=== PATIENT | male | born 1995 | race Two or more races ===

== ENCOUNTER 2017-12-02 17:59 | Emergency (ER) | payer BC, OTHER ==
[2017-12-02 18:29] VITALS: BP 147/89; PULSE 79; RESP 18; TEMP 98.5
--- NOTE | 2017-12-02 18:55 | ED ---
Skin/Abscess/FB HPI - General Chief complaint: Skin/Abscess/Foreign Body Stated complaint: rt leg rash Time Seen by Provider: 12/02/17 18:31 Source: patient Mode of arrival: ambulatory Limitations: no limitations - History of Present Illness Initial comments: 22-year-old male patient presents the emergency department today for evaluation of a wound to the medial right upper thigh. Patient states that 2 days ago he had to walk home from work and developed a chafing wound to the thigh. Patient states he is unable to go to work for the last 2 days because of the discomfort. He denies any fevers or chills with this. Denies any drainage of pus from the wound. Denies any other injuries or concerns. Patient denies any headache, neck pain, back pain, chest pain, shortness of breath, dizziness, weakness, abdominal pain, nausea, vomiting, or difficulties with bowel movements or urination. - Related Data Previous Rx's Medication Instructions Recorded Naproxen [Naprosyn] 500 mg PO Q12HR PRN #30 tab 04/01/17 SILVER sulfADIAZINE Cream 1 applic TOPICAL BID #1 tube 04/01/17 [Silvadene 1% Cream] Zinc Oxide [Desitin] 1 applic TOPICAL BID #15 gm 12/02/17 Allergies Allergy/AdvReac Type Severity Reaction Status Date / Time No Known Allergies Allergy Verified 04/01/17 07:26 Review of Systems ROS Statement: Those systems with pertinent positive or pertinent negative responses have been documented in the HPI. ROS Other: All systems not noted in ROS Statement are negative. Past Medical History Past Medical History: No Reported History History of Any Multi-Drug Resistant Organisms: None Reported Past Surgical History: No Surgical Hx Reported Past Anesthesia/Blood Transfusion Reactions: No Reported Reaction Past Psychological History: Depression Smoking Status: Current every day smoker Past Alcohol Use History: Occasional Past Drug Use History: Marijuana - Past Family History Mother History Unknown: Yes Father History Unknown: Yes General Exam Limitations: no limitations General appearance: alert, in no apparent distress, other (This is a well- developed, well-nourished adult male patient in no acute distress. Vital signs upon presentation are temperature 98.5F, pulse 79, respirations 18, blood pressure 147/89, pulse ox 100% on room air.) Respiratory exam: Present: normal lung sounds bilaterally. Absent: respiratory distress, wheezes, rales, rhonchi, stridor Cardiovascular Exam: Present: regular rate, normal rhythm, normal heart sounds. Absent: systolic murmur, diastolic murmur, rubs, gallop, clicks Extremities exam: Present: full ROM, normal capillary refill, other (Medial right upper thigh exhibits abrasion type wound. No surrounding erythema, no drainage of pus, no warmth to the area. Remainder of skin is pink, warm, and dry. Cap refills less than 3 seconds. Pedal pulses 2+ and equal bilaterally.) . Absent: normal inspection, tenderness, pedal edema, joint swelling, calf tenderness Neurological exam: Present: alert, oriented X3, CN II-XII intact Psychiatric exam: Present: normal affect, normal mood Skin exam: Present: warm, dry, intact, normal color. Absent: rash Course Vital Signs 12/02/17 18:26 Temperature 98.5 F Pulse Rate 79 Respiratory 18 Rate Blood Pressure 147/89 O2 Sat by Pulse 100 Oximetry Medical Decision Making - Medical Decision Making 22-year-old male patient presented to the emergency department today for evaluation of a chafing type wound to the right upper medial thigh. Physical examination did reveal an abrasion to the area with no signs or symptoms of infection. Patient is afebrile, vital signs are stable. He'll be prescribed Desitin to apply over the area to prevent further chafing. He is instructed to follow-up with his primary care physician for recheck in 1-2 days. Return parameters discussed in detail. He verbalizes understanding and agrees with this plan. Disposition Clinical Impression: Abrasion of thigh Disposition: HOME SELF-CARE Condition: Good Instructions: Abrasion (ED) Additional Instructions: Use Desitin cream as directed. Follow-up with your primary care physician for recheck in 1-2 days. Return here immediately for any new, worsening, or concerning symptoms. Prescriptions: Zinc Oxide [Desitin] 1 applic TOPICAL BID #15 gm Is patient prescribed a controlled substance at d/c from ED?: No Referrals: Austin Moss MD [Primary Care Provider] - 1-2 days Time of Disposition: 18:55
== END 2017-12-02 19:16 | disposition home or self-care (01) ==
LOC: EC 17:59
DX: S70.311A Abrasion, right thigh, initial encounter (principal); F17.200 Nicotine dependence, unspecified, uncomplicated; X58.XXXA Exposure to other specified factors, initial encounter; Y92.89 Other specified places as the place of occurrence of the external cause
CPT/HCPCS: 99282